=== PATIENT | male | born 1955 | race Caucasian/White ===

== ENCOUNTER 2022-08-11 14:14 | Emergency (ER) | payer MEDICARE, SELFPAY ==
--- NOTE | ~2022-08-11 | XR_ITS ---
EXAMINATION: XR finger 1st RT min 2V DATE: 08/11/2022 14:54 INDICATION: Table saw laceration to the right from TECHNIQUE: Dorsal palmar, lateral and oblique views of the left first digit were obtained COMPARISON: None FINDINGS: Soft tissue laceration is seen at the palmar aspect of the thumb at the level of the base of the dist al phalanx. No evident involvement of the underlying bone. Bone alignment is normal. No fractures. Mi ld polyarticular osteoarthritis including at the triscaphe, first carpometacarpal, the visualized fir st-third metacarpophalangeal and first interphalangeal joints. IMPRESSION: 1. Laceration at the palmar aspect of the right first distal phalanx without evident osseous involvem ent. 2. 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 Reviewed, dictated and finalized at location A. IMPRESSION: 1. Laceration at the palmar aspect of the right first distal phalanx without ev ident osseous involvement. 2. Mild polyarticular osteoarthritis in the visualized portion of the right spear d as detailed above.
[2022-08-11 14:22] VITALS: BP 105/68; PULSE 105; RESP 18; TEMP 36.4; O2SAT 98
--- NOTE | 2022-08-11 14:45 | ED.WOUNDLAC ---
HPI - Wound/Laceration General Chief Complaint: Wound/Laceration <FARIHA Arechiga Last Filed: 08/11/22 18:01> Stated Complaint: laceration to right thumb <Brynn Pike PA-C - Last Filed: 08/11/22 18:01> Time Seen by Provider: 08/11/22 14:28 <FARIHA Arechiga Last Filed: 08/11/22 18:01> History of Present Illness HPI narrative: Patient is a 67-year-old [id number] male here for evaluation of a wound to right thumb sustained about 30 minutes prior to arrival. Patient states he was pushing a object through a circular saw when asked control of the object and the saw cut his right thumb. Bleeding controlled prior to arrival. Patient's tetanus is up-to-date. He is not on blood thinner medicine. He is able to move the hand, denies any paresthesias or weakness. <FARIHA Arechiga Last Filed: 08/11/22 18:01> Related Data Home Medications: Home Medications Medication Instructions Recorded Confirmed diclofenac sodium 1 % topical gel 2 g topical QID 02/07/22 gbjcaobovhjr-vdx-uloda acid-vit 1 tablet PO DAILY 07/18/22 K-lycop 400 mcg-20 mcg-370 mcg tablet (Men's 50 Plus Multivitamin) omega 9-xza-vlt-fish oil 300 1 cap PO DAILY 07/18/22 mg-1,000 mg capsule (Fish Oil) <FARIHA Arechiga Last Filed: 08/11/22 18:01> Allergies/Adverse Reactions: Allergies Allergy/AdvReac Type Severity Reaction Status Date / Time tolmetin [From Tolectin] Allergy Severe itchy Verified 08/11/22 14:26 palms and soles of feet <FARIHA Arechiga Last Filed: 08/11/22 18:01> Review of Systems Review of Systems: Gen.: Denies fevers or chills Eyes: Denies eye pain or visual change ENT: Denies congestion Respiratory: Denies shortness of breath or cough CV: Denies chest pain or palpitations GI: Denies abdominal pain nausea, emesis or diarrhea denies burning, urgency, frequency or hematuria Musculoskeletal: Denies back pain or muscle pain Neuro: Denies numbness, tingling, weakness or focal weakness Skin: Reports laceration to thumb Except as documented, all other systems reviewed and negative <Brynn Pike PA-C - Last Filed: 08/11/22 18:01> [facility] Past Medical History Medical History: Medical History Acute sinusitis Bipolar affective disorder, current episode hypomanic Hypertension Mixed hyperlipidemia Otitis media Type 2 diabetes mellitus without complication, without long-term current use of insulin <Brynn Pike PA-C - Last Filed: 08/11/22 18:01> Surgical History Surgical History: Surgical History History of cholecystectomy <Brynn Pike PA-C - Last Filed: 08/11/22 18:01> Family History Family History: Family History Mother Family history of lupus erythematosus Father Family history of heart disease in male family member before age 55 Other Family history of cardiovascular disease <Brynn Pike PA-C - Last Filed: 08/11/22 18:01> Social History Social History: Social History (Updated 07/18/22 @ 09:16 by Sarah Baeza PA-C) Smoking status: Former smoker Second hand tobacco smoke exposure: No Alcohol intake: current Drinks per week: 6 Substance use: never Substance use type: does not use <Brynn Pike PA-C - Last Filed: 08/11/22 18:01> Exam Narrative: Gen: Alert, oriented, no acute distress Eyes: EOMI, no icterus Pulm: Respirations even and unlabored, symmetric thorax expansion, no audible stridor or visible cyanosis CV: Brisk capillary refill to hand. GI: No distension, no voluntary/involuntary guarding Neuro: AOx4, moves all extremities without apparent difficulty or weakness, follows commands MSK: Full range of motion
[2022-08-11] MEDS: ACETAMINOPHEN 325 MG TABLET 650 MG PO (14:54)
[2022-08-11 17:23] VITALS: BP 111/74; PULSE 79; RESP 19; O2SAT 97
== END 2022-08-11 17:25 | disposition home or self-care (01) ==
PROVIDERS: Emergency Provider Emergency Medicine; PCP Family Medicine
DX: S61.011A Laceration without foreign body of right thumb without damage to nail, initial encounter (principal); I10 Essential (primary) hypertension; E78.2 Mixed hyperlipidemia; E11.9 Type 2 diabetes mellitus without complications; Z87.891 Personal history of nicotine dependence; M18.9 Osteoarthritis of first carpometacarpal joint, unspecified; M19.031 Primary osteoarthritis, right wrist; M19.041 Primary osteoarthritis, right hand; W31.2XXA Contact with powered woodworking and forming machines, initial encounter
CPT/HCPCS: 12002; 73140; 99283; A9270

== ENCOUNTER 2024-06-03 17:52 | Emergency (ER) | payer MEDICARE, SELFPAY ==
[2024-06-03 18:06] VITALS: BP 138/78; PULSE 83; RESP 18; TEMP 36.7; O2SAT 96
--- NOTE | 2024-06-03 18:06 | ED.URI ---
HPI - URI/Sore Throat General Chief Complaint: Upper Respiratory Infection Stated Complaint: sinus infection Time Seen by Provider: 06/03/24 18:06 Source: patient, RN notes reviewed and old records reviewed Mode of arrival: ambulatory Limitations: no limitations History of Present Illness HPI Narrative: Patient with significant history of sinus problems, including surgery, follows with ENT, presents today with complaints of left-sided sinus pain and swelling. He reports that pain and nasal congestion began a few days ago. Swelling to the face began today. He reports this has happened in the past. He does have associated postnasal drip and cough. He denies any fever, chills, sweats. He denies any injury or trauma. Related Data Home Medications Medication Instructions Recorded Confirmed kdzmbvgiotaj-qlr-biqqp acid-vit 1 tablet PO DAILY 07/18/22 06/03/24 K-lycop 400 mcg-20 mcg-370 mcg tablet (Men's 50 Plus Multivitamin) Allergies Allergy/AdvReac Type Severity Reaction Status Date / Time tolmetin [From Tolectin] AdvReac Mild itchy Verified 06/03/24 17:55 palms and soles of feet Review of Systems Review of Systems: All systems reviewed & are unremarkable except as noted in HPI and below Constitutional: Constitutional: Reports no additional constitutional complaints ENT: Reports system reviewed and no additional complaints, except as documented, Reports otalgia, Reports nasal congestion, Reports nasal discharge, Reports sinus pain and Reports sinus pressure Cardiovascular: Cardiovascular: Reports no additional cardiovascular complaints Respiratory: Respiratory: Reports no additional respiratory complaints and Reports cough Gastrointestinal: Gastrointestinal: Reports no additional gastrointestinal complaints [facility] Past Medical History Medical History Acute sinusitis Bipolar affective disorder, current episode hypomanic Hypertension Mixed hyperlipidemia Otitis media Type 2 diabetes mellitus without complication, without long-term current use of insulin Surgical History Surgical History History of cholecystectomy Family History Family History Mother Family history of lupus erythematosus Father Family history of heart disease in male family member before age 55 Other Family history of cardiovascular disease Social History Social History (Reviewed 06/03/24 @ 19:51 by JOSE C Gaspar Smoking status: Former smoker Second hand tobacco smoke exposure: No Alcohol intake: current Drinks per week: 6 Substance use: never Substance use type: does not use Exam Const: General: cooperative, no acute distress, alert and awake Orientation/consciousness: oriented to person, oriented to place and oriented to time HENMT: Head: normal to inspection Ears: TM abnormal with fluid behind the TM (left) Face/Nose/Sinus: Facial tenderness on exam of face and sinuses ( Left side, with associated swelling over the maxillary sinus) Mouth: Yes moist mucous membranes Throat: posterior oropharynx abnormal erythema and postnasal drainage (purulent) Resp: Effort & Inspection: normal respiratory effort and able to speak in complete sentences Auscultation: clear to auscultation bilaterally, no crackles, no rales, no rhonchi and no wheezes Cardio: Palpation: normal PMI Rate: regular rate Rhythm: regular rhythm Heart sounds: S1 normal heart sound present and S2 normal heart sound present Neuro: General: oriented to person, oriented to place and oriented to time Cranial nerves: Yes CN's II-XII intact bilaterally Psych: Appearance: grossly normal Thought process: Normal thought process present Insight: Good insight present (Psych) Judgement: Good judgement present (Psych) Course Course Level of Care: Jo Ann Ingram
== END 2024-06-03 18:30 | disposition home or self-care (01) ==
PROVIDERS: Emergency Provider Nurse Practitioner Family; PCP Family Medicine
DX: J01.00 Acute maxillary sinusitis, unspecified (principal); Z20.822 Contact with and (suspected) exposure to COVID-19; Z87.891 Personal history of nicotine dependence; I10 Essential (primary) hypertension; E78.2 Mixed hyperlipidemia; E11.9 Type 2 diabetes mellitus without complications
CPT/HCPCS: 87426; 99213; G0463